=== PATIENT | male | born 2000 | race Caucasian/White ===

== ENCOUNTER 2020-07-06 19:52 | Emergency (ER) | payer MEDICAID ==
[2020-07-06 20:18] LABS: BASOPHILS % (AUTO) 0.2 % (0-1); EOSINOPHILS # (AUTO) 0.1 X10'3 (0-0.9); EOSINOPHILS % (AUTO) 1.5 % (0-6); HEMATOCRIT 43.1 % (42.0-52.0); HEMOGLOBIN 14.5 g/dl (14.0-17.9); LYMPHOCYTES # (AUTO) 1.2 X10'3 (1.1-4.8); MEAN CORPUSCULAR HEMOGLOBIN 31.4 PG (27.0-31.0); MEAN CORPUSCULAR HGB CONC 33.7 g/dL (33.0-36.5); MEAN PLATELET VOLUME 8.4 FL (7.4-10.4); MONOCYTES # (AUTO) 0.8 X10'3 (0-0.9); MONOCYTES % (AUTO) 8.2 % (2-12); NEUTROPHILS # (AUTO) 7.3 X10'3 (1.8-7.7); NEUTROPHILS % (AUTO) 77.1 % (42-75); PLATELET COUNT 227 X10'3 (140-440); RED BLOOD COUNT 4.63 X10'6 (4.70-6.10); RED CELL DISTRIBUTION WIDTH 13.8 % (11.5-14.5); WHITE BLOOD COUNT 9.5 X10'3 (4.5-11.0)
[2020-07-06 20:36] LABS: ALANINE AMINOTRANSFERASE 25 U/L (12-78); ALBUMIN 4.3 G/DL (3.4-5.0); ALBUMIN/GLOBULIN RATIO 1.2 (1.1-1.5); ALKALINE PHOSPHATASE 54 IU/L (46-116); ANION GAP 7 (8-16); ASPARTATE AMINO TRANSFERASE 16 U/L (10-37); BILIRUBIN,TOTAL 0.4 MG/DL (0.1-1.0); BLOOD UREA NITROGEN 12 MG/DL (7-18); CHLORIDE 105 MMOL/L (99-107); CREATININE 0.92 MG/DL (0.60-1.10); GLUCOSE 98 MG/DL (70-104); POTASSIUM 4.2 MMOL/L (3.5-5.1); SODIUM 142 MMOL/L (135-145); TOTAL CARBON DIOXIDE 30.3 MMOL/L (24-32); TOTAL PROTEIN 7.8 G/DL (6.4-8.2); eGFR > 90 ML/MIN
[2020-07-06 20:40] LABS: ETHANOL < 0.010 GM/DL (0.0-0.010)
[2020-07-06 20:51] LABS: URINE CANNABINOID SCREEN POSITIVE (Neg); URINE COCAINE SCREEN NEGATIVE (Neg); URINE METHADONE SCREEN NEGATIVE (Neg); URINE PHENCYCLIDINE SCREEN NEGATIVE (Neg)
[2020-07-06 20:53] LABS: URINE AMPHETAMINE SCREEN NEGATIVE (Neg); URINE BARBITUATE SCREEN NEGATIVE (Neg); URINE BENZODIAZEPINES SCREEN NEGATIVE (Neg); URINE OPIATE SCREEN NEGATIVE (Neg)
[2020-07-06] MEDS ORDERED: OLANZapine 5mg rapidly disint. tablet PO ONE (22:10)
[2020-07-06] MEDS ORDERED: quetiapine 100mg tablet PO SCH (22:11)
[2020-07-07] MEDS ORDERED: RISP2TAB3 PO (00:34)
--- NOTE | 2020-07-07 00:52 | NUR ---
PT TO BATHROOM
--- NOTE | 2020-07-07 02:15 | NUR ---
Arrived on floor from main ER. Ambulated to bed.
--- NOTE | 2020-07-07 04:05 | NUR ---
Packet faxed to [facility].
--- NOTE | 2020-07-07 08:10 | NUR ---
PT GIVEN BREAKFAST TRAY.
--- NOTE | 2020-07-07 11:13 | NUR ---
[facility]IAN AT BEDSIDE FOR EVAL.
--- NOTE | 2020-07-07 11:30 | NUR ---
ASSUMED CARE OF PT HE IS LAYING ON HIS LEFT SIDE, EYES CLOSED, ASLEEP, REGULAR BREATHING PRESENT
--- NOTE | 2020-07-07 12:26 | NUR ---
PT IS RESTING ON HIS LEFT SIDE, EYES CLOSED, REGULAR BREATHING OBSERVED, NO NEEDS AT THIS TIME
--- NOTE | 2020-07-07 13:09 | NUR ---
pt is finished with his lunch, now resting on his left side again, calm with staff
--- NOTE | 2020-07-07 13:56 | NUR ---
pt is resting on his left side, eyes open, calm, awake, no needs at this time
--- NOTE | 2020-07-07 15:03 | NUR ---
pt ambulated to the bathroom without difficulty, calm
--- NOTE | 2020-07-07 16:00 | NUR ---
pt is sleeping
--- NOTE | 2020-07-07 17:00 | NUR ---
pt is sleeping
[2020-07-07 17:50] VITALS: BP 116/72
--- NOTE | 2020-07-07 18:30 | NUR ---
PT UPDATED PLOC WITH HIS MOVE , TO [facility], LATER THIS EVENING. PT WAS COROPORATIVE , ATE 100 % OF HIS DINNER , MADE HIS BED AND IS CURRENTLY RESTING PEACFULLY
--- NOTE | 2020-07-07 19:25 | NUR ---
pt sleeping on his left side resp even and unlabored pt in the direct line of staff
--- NOTE | 2020-07-07 20:46 | NUR ---
[facility] TECH TO OF TO TRANSPORT PATIENT TO [facility] FOR ADMISSION . SECURITY CALLED AND WILL ACCOMPY PT TO FLOOR . PT VERY POLITE AND COROPORATIVE . ALL BELONGINGS GIVEN TO PATIENT
[2020-07-10] MEDS ORDERED: RISP2TAB3 PO (14:23)
[2020-07-15] MEDS ORDERED: TRAZ-251 PO (09:13)
== END 2020-07-07 20:40 ==
LOC: ER 19:53
DX: F29 Unspecified psychosis not due to a substance or known physiological condition (principal); M54.6 Pain in thoracic spine; Z79.899 Other long term (current) drug therapy
CPT/HCPCS: 36415; 80053; 80305; 80320; 85025; 99285